=== PATIENT | male | born 1975 | race Caucasian/White ===

== ENCOUNTER 2023-07-08 07:32 | Outpatient (CLI) | payer OTHER | END 2023-07-08 23:59 | disposition home or self-care (01) | LOC: MRI 07:32 | PROVIDERS: ATTEND Family Medicine Sports Medicine | DX: S86.111A Strain of other muscle(s) and tendon(s) of posterior muscle group at lower leg level, right leg, initial encounter (principal); M25.561 Pain in right knee; I82.409 Acute embolism and thrombosis of unspecified deep veins of unspecified lower extremity; X58.XXXA Exposure to other specified factors, initial encounter; Y93.89 Activity, other specified; Y92.89 Other specified places as the place of occurrence of the external cause; Y99.8 Other external cause status; M71.21 Synovial cyst of popliteal space [Baker], right knee | CPT/HCPCS: 73718 ==